=== PATIENT | male | born 1975 | race Caucasian/White ===

== ENCOUNTER → 2021-06-08 | Outpatient (CLI) | payer MEDICAID ==
[~2021-06-08] MED LIST: OMNIPAQUE 350 MG/ML, 100ML BOTTLE ONE
[2021-06-08 15:21] LABS: CREATININE 1.43 mg/dL (0.7-1.3)
== END | disposition home or self-care (01) ==
LOC: RAD 14:38
PROVIDERS: ATTEND Nurse Practitioner Family
DX: I65.23 Occlusion and stenosis of bilateral carotid arteries (principal); I63.9 Cerebral infarction, unspecified
CPT/HCPCS: 36415; 70496; 70498; 82565; Q9967

== ENCOUNTER 2021-08-24 10:28 | Emergency (ER) | payer MEDICAID ==
[~2021-08-24] VITALS: Ht 182.9 cm; Wt 123.6 kg
--- NOTE | 2021-08-24 11:01 | NUR ---
FIRST CONTACT: sob began today. back pain. unvaccinated. 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 PT POSTIONED TO COMFORT IN BED AND ATTACHED TO MONITORS. ANDRADE. BENITO.
--- NOTE | 2021-08-24 11:09 | NUR ---
DR. HERNANDES TO BEDSIDE FOR EVALUATION.
[2021-08-24] MEDS ORDERED: HYDROcodone/APAP 5/325 TABLET ONE ×2 (11:19→13:19)
[2021-08-24] MEDS ORDERED: PLEASE ENTER ALLERGIES MC SCH (11:21)
--- NOTE | 2021-08-24 11:25 | NUR ---
PT MEDICATED PER EMAR.
[2021-08-24] MEDS ORDERED: HYDROcodone/APAP 5/325 TABLET PO ONE ×2 (11:30→13:30)
--- NOTE | 2021-08-24 11:41 | NUR ---
PT TO XRAY
--- NOTE | 2021-08-24 11:46 | NUR ---
PT BACK FROM XRAY.
[2021-08-24 12:02] LABS: BASOPHILS % (AUTO) 0 % (0-1); EOSINOPHILS % (AUTO) 2 % (1-7); LYMPHOCYTES % (AUTO) 23 % (22-44); MEAN CORPUSCULAR HEMOGLOBIN 29.5 pg (27.5-34.5); MEAN CORPUSCULAR HGB CONC 33.4 g/dL (33.2-36.2); MONOCYTES % (AUTO) 8 % (2-9); NEUTROPHILS % (AUTO) 67 % (42-75); PLATELET COUNT 237 x10^3/uL (130-400); RED BLOOD COUNT 4.38 x10^6/uL (4.38-5.82); RED CELL DISTRIBUTION WIDTH 13.5 % (9.4-14.8)
[2021-08-24 12:16] LABS: ALANINE AMINOTRANSFERASE 41 U/L (12-78); ALBUMIN 3.5 g/dL (3.4-5.0); ANION GAP 4 mmol/L (5-15); CALCIUM 8.2 mg/dL (8.5-10.1); CHLORIDE 108 mmol/L (98-107); CREATININE 1.54 mg/dL (0.7-1.3)
[2021-08-24 12:20] LABS: ALKALINE PHOSPHATASE 106 U/L (45-117); BILIRUBIN,TOTAL 0.4 mg/dL (0.2-1.0); TOTAL PROTEIN 7.1 g/dL (6.4-8.2); TROPONIN I < 0.015 ng/mL (0.000-0.045)
[2021-08-24 12:50] VITALS: BP 135/83
--- NOTE | 2021-08-24 12:51 | NUR ---
pt resting in bed. up for recheck.
--- NOTE | 2021-08-24 13:15 | NUR ---
ATTEMPTED TO ROAD TEST FOR D/C. PATIENT UNABLE TO STAND D/T PAIN. WILL UPDATE PROVIDER AND F/U
--- NOTE | 2021-08-24 14:12 | NUR ---
Patient given discharge instructions and they have confirmed that they understand the instructions. Patient ambulatory with steady gait. NAD, all questions answered appropriately, denies additional needs at this time. No personal belongings left in room after discharge. Patient states he has safe ride home.
== END 2021-08-24 14:13 | disposition home or self-care (01) ==
LOC: ED 10:33
DX: R06.00 Dyspnea, unspecified (principal); M51.36 Other intervertebral disc degeneration, lumbar region; N18.30 Chronic kidney disease, stage 3 unspecified
CPT/HCPCS: 36415; 71045; 72110; 80053; 83880; 84484; 85025; 93005; 99285